=== PATIENT | male | born 1980 | race Caucasian/White ===

== ENCOUNTER 2017-05-16 12:55 | Emergency (ER) | payer MEDICARE ==
[2017-05-16] MEDS ORDERED: ONDANSETRON ODT 4 MG TAB PO STA (13:53)
[2017-05-16] MEDS ORDERED: HYDROmorphone 1 MG/ML 1 ML SYRINGE IM STA (13:53)
--- NOTE | 2017-05-16 13:59 | ED ---
General Adult HPI - General Chief complaint: Urogenital Stated complaint: groin pain Time Seen by Provider: 05/16/17 13:47 Source: patient, family, RN notes reviewed Mode of arrival: ambulatory Limitations: no limitations - History of Present Illness Initial comments: If complaint and history of present illness a 36-year-old male here with complaint of left testicular area pain and progressively worse over the past week. He was scheduled to see a general surgeon later on this afternoon but the pain was too intense at this time. Patient reports he had a urine test done at his doctor's office with did show some red blood cells he does have a history of kidney stones in the past. Describes the discomfort as left lower quadrant radiating to the left testicular area. Possibility of a hernia is being investigated. - Related Data Home Medications Medication Instructions Recorded Confirmed Acetaminophen Tab [Tylenol Tab] 1,000 mg PO Q6HR PRN 05/16/17 05/16/17 Ascorbic Acid [Vitamin C] 500 mg PO DAILY 05/16/17 05/16/17 Cholecalciferol [Vitamin D3] 1,000 unit PO DAILY 05/16/17 05/16/17 Ibuprofen [Motrin] 200 - 400 mg PO Q6HR PRN 05/16/17 05/16/17 Multivitamins, Thera [Multivitamin 1 tab PO DAILY 05/16/17 05/16/17 (formulary)] [place]-3 Fatty Acids [[place]-3] 1,000 mg PO DAILY 05/16/17 05/16/17 Zinc 50 mg PO DAILY 05/16/17 05/16/17 Previous Rx's Medication Instructions Recorded Hydrocodone/Acetaminophen [[place] 1 each PO Q6HR PRN #20 tab 05/16/17 5-325] Ondansetron Odt [Zofran Odt] 4 mg PO Q8HR PRN #10 tab 05/16/17 Tamsulosin [Flomax] 0.4 mg PO DAILY #14 cap 05/16/17 Allergies Allergy/AdvReac Type Severity Reaction Status Date / Time bupropion [From Wellbutrin] Allergy Dyspnea Verified 05/16/17 13:26 duloxetine [From Cymbalta] Allergy Dyspnea Verified 05/16/17 13:26 sertraline [From Zoloft] Allergy Dyspnea Verified 05/16/17 13:26 venom-honey bee Allergy Anaphylaxis Verified 05/16/17 13:27 Review of Systems ROS Statement: Those systems with pertinent positive or pertinent negative responses have been documented in the HPI. You have systems; no other complaints other than discomfort to the left testicular area. Past medical problems significant for 2 back surgeries. He had 2 episodes of kidney stones years ago. He's also had tonsils and adenoids removed. Family history grandfather had bladder cancer. Patient nonsmoker drinks alcohol socially. His ALLERGIES include bupropion, duloxetine, sertraline, and venom of a honey bee. ROS Other: All systems not noted in ROS Statement are negative. Past Medical History Additional Past Medical History / Comment(s): kidney stones History of Any Multi-Drug Resistant Organisms: None Reported Past Surgical History: Back Surgery, Tonsillectomy Past Psychological History: No Psychological Hx Reported Smoking Status: Never smoker Past Alcohol Use History: Occasional Past Drug Use History: None Reported General Exam - General Exam Comments Initial Comments: Pertinent physical examination Patient presents with pain to the left testicular area getting progressively worse over 1 week. Vital signs shows a temperature of 98.1 pulse 94 respiratory rate 20 pulse ox 99% room air blood pressure 133/91 No fever no chills. No complaints of nausea or vomiting. Elevation no bulging with coughing over the left lower quadrant. Examination of the external inguinal ring was extremely uncomfortable, possibility of epididymitis is suspected on examination. Patient denying dysuria. Limitations: no limitations Course Vital Signs 05/16/17 05/16/17 13:09 15:17 Temperature 98.1 F Pulse Rate 94 79 Respiratory 20 16 Rate Blood Pressure 133/91 147/79 O2 Sat by Pulse 99 98 Oximetry Medical Decision Making - Medical Decision Making Rectal decision making; the patient is here for left testicular and left groin area pain that radiates up toward the left flank area. Ongoing and getting progressively worse for the past several days. Patient had an appointment to follow-up with general surgeon earlier today when he switched general surgeons and came here instead. he had x-ray of the abdomen reviewed by radiologist his impression is; bilateral nephrolithiasis. Postop changes. Correlate for possible left lower lobe pneumonia area and as read by Dr. Villalta The patient had an ultrasound of the scrotum. It was reviewed by the radiologist and his impression is; no evidence for testicular torsion or epididymal orchitis. No hydrocele or varicocele. As read by Dr. Hernandez Urine was clean, no signs of infection or blood. The patient had a CT of the abdomen and pelvis without IV or oral contrast. The radiologist significant findings include lung bases no significant abnormality is appreciated. Kidneys entire report was reviewed but significant findings include no evidence of hydronephrosis. There are multiple kidney stones within the parenchyma of this kidney and the radiologist suspects phleboliths in the pelvis but is difficult to exclude distal ureteral calculus on the left. His interpretation of the bowel is no significant abnormality is seen. No evident hernia. There is a large amount of retained fecal debris noted incidentally within the colon. There are some air-fluid levels in the small bowel, questionable areas of small bowel wall thickening. No evidence of appendicitis. His final impression is noncontrast exam with limitations as described. Bilateral nephrolithiasis postop changes described no evident hernia. Correlate to exclude enteritis. Follow-up is indicated. As read by Dr. Villalta We discussed hernia, epididymal orchitis which appear to be negative by ultrasound. Kidney stones which were not entirely ruled out by even the CAT scan. We did discuss also enteritis but the patient is having more constipation. The patient will be placed on analgesics, medications to increase urine output and something for nausea should it develop. If the pain were to persist he is to call his surgeon to whom he was reviewed to Dr. Dodd or on-call urology Dr. Wells - Lab Data Lab Results 05/16/17 Range/Units 15:25 Urine Color Yellow Urine Appearance Clear (Clear) Urine pH 7.0 (5.0-8.0) Ur Specific [place] 1.009 (1.001-1.035) Urine Protein Negative (Negative) Urine Glucose (UA) Negative (Negative) Urine Ketones Negative (Negative) Urine Blood Negative (Negative) Urine Nitrite Negative (Negative) Urine Bilirubin Negative (Negative) Urine Urobilinogen <2.0 (<2.0) mg/dL Ur Leukocyte Esterase Negative (Negative) Disposition Clinical Impression: Ureterolithiasis Disposition: HOME SELF-CARE Condition: Fair Instructions: Kidney Stones (ED), Testicle Pain (ED) Additional Instructions: Increase fluids, use Zofran as needed for nausea, take Flomax increased urine flow, [place] for pain if ibuprofen isn't strong enough. Strain the urine. If pain persists follow up with Dr. Velasco or urologist Dr. Wells. Prescriptions: Hydrocodone/Acetaminophen [[place] 5-325] 1 each PO Q6HR PRN #20 tab PRN Reason: Pain Ondansetron Odt [Zofran Odt] 4 mg PO Q8HR PRN #10 tab PRN Reason: Nausea vomiting Tamsulosin [Flomax] 0.4 mg PO DAILY #14 cap Referrals: None,Stated [Primary Care Provider] - 1-2 days Steve Wells MD [STAFF PHYSICIAN] - 1-2 days Time of Disposition: 16:50
--- NOTE | 2017-05-16 15:07 | XR ---
2 view abdomen HISTORY: Left flank pain, history of stones 2 views of the abdomen submitted on 3 images, no comparisons There are multiple calcifications scattered over the bilateral kidneys. Largest calcification on the left measures approximately 1 cm x 4 mm, there may be an additional calcification measuring 2 mm in d iameter immediately lateral, possible lower lobe and upper lobe 2 mm calcifications. The largest calc ification on the right measures 1 cm x 5 mm. There may be an immediately adjacent calcification measu ring 2 mm. Overlying bowel gas may obscure detail. Difficult to exclude retrocardiac density, correla te for left lower lobe pneumonia. No evident pneumoperitoneum or bowel obstruction. Postop changes ar e present status post posterior lumbar fusion, lumbosacral fusion. IMPRESSION: Bilateral nephrolithiasis. Postop changes. Correlate for possible left lower lobe pneumon ia.
[2017-05-16] MEDS ORDERED: KETOROLAC 30 MG/ML 1 ML VIAL IM STA (15:08)
--- NOTE | 2017-05-16 15:10 | US ---
EXAMINATION TYPE: US scrotum with doppler. TECHNIQUE: Grayscale and color Doppler Duplex imaging performed of the scrotum. DATE OF EXAM: 05/16/2017 COMPARISON: NONE CLINICAL HISTORY: 36-year-old male with left testicular, left inguinal pain. FINDINGS: EXAM MEASUREMENTS: TESTICLES: Right Testicle: 5.2 x 2.7 x 3.9 cm Left Testicle: 5.0 x 2.7 x 3.9 cm There is normal homogeneous echotexture on both sides. No hyperemia. No mass. A couple punctate calci fications are present on the right and one on the left. These are incidental and do not meet criteria for microlithiasis. Satisfactory arterial and venous flow on both sides. EPIDIDYMIS HEAD: Right Epididymis: 0.7 cm Left Epididymis: 0.9 cm Presence of hydroceles: no Presence of varicoceles: no IMPRESSION: 1. No evidence for testicular torsion or epididymoorchitis. 2. No hydrocele or varicocele.
[2017-05-16 15:32] LABS: Appearance,Urine Clear (Clear); Bilirubin,Urine Negative (Negative); Glucose,Urine (UA) Negative (Negative); Ketones,Urine Negative (Negative); Leukocyte Esterase,Urine Negative (Negative); Nitrite,Urine Negative (Negative); Protein,Urine Negative (Negative); Specific Gravity,Urine 1.009 (1.001-1.035); UA Billing (MACRO vs. MICRO) CHEM; Urobilinogen,Urine <2.0 mg/dL (<2.0)
--- NOTE | 2017-05-16 16:18 | XR ---
EXAMINATION TYPE: XR chest 2V DATE OF EXAM: 05/16/2017 COMPARISON: NONE INDICATION: Left lower lobe pneumonia. TECHNIQUE: Frontal and lateral views of the chest are obtained. FINDINGS: The heart size is normal. The pulmonary vasculature is normal. The lungs are clear. Left lower lung field is clear. IMPRESSION: 1. No acute pulmonary process.
--- NOTE | 2017-05-16 16:25 | CT ---
EXAMINATION TYPE: CT abdomen pelvis wo con DATE OF EXAM: 05/16/2017 COMPARISON: Plain film same date HISTORY: Left side flank and groin pain x3 days. CT DLP: 345.1 mGycm Automated exposure control for dose reduction was used. TECHNIQUE: Helical acquisition of images from the lung bases through the pelvis. FINDINGS: Lack of contrast could compromise sensitivity. LUNG BASES: No significant abnormality is appreciated. AORTA: No significant abnormality is appreciated. LIVER/GB: No significant abnormality is appreciated. PANCREAS: No significant abnormality is seen. SPLEEN: No significant abnormality is seen. ADRENALS: No significant abnormality is seen. KIDNEYS: Bilateral renal calculi are present. No evident hydronephrosis. There are extrarenal pelves present bilaterally however. Largest calculus at the lower pole of the right kidney measures approxim ately 9.5 x 6.3 mm, additional calculus measuring 3.5 mm at the lower pole, the midpole there is a 2 mm calculus. Left kidney shows the largest calculus at the mid pole measuring accidentally 6 mm x 12 in greatest dimension. Punctate calcifications present in the lower pole, Toprol approximately 5 calc ifications. Suspect phleboliths in the pelvis, difficult to to exclude a distal ureteral calculus on the left. REPRODUCTIVE ORGANS: No significant abnormality is seen. URINARY BLADDER: No significant abnormality is seen. BOWEL: No significant abnormality is seen. No evident hernia. Large amount of retained fecal debris noted incidentally within the colon. There are some air-fluid levels within the small bowel, question able areas of small bowel wall thickening. No evident appendicitis. FREE AIR: No Free Air is visible. ASCITES: None visible. PELVIC ADENOPATHY: None visualized. RETROPERITONEAL ADENOPATHY: No Retroperitoneal Adenopathy visible. OSSEOUS STRUCTURES: Lumbar fusion changes are present posteriorly L4-5 with intervertebral spacing m aterial, there is been fusion at L5-S1 with minimal grade 1 anterolisthesis, bilateral spondylolysis present at L5. Longitudinal ossific density present from the inferior aspect of the fusion indu at S1 level extends anterior to the sacrum towards the caudal aspect. Facet arthropathy change present L5-S 1, L4-5 IMPRESSION: NONCONTRAST EXAM WITH LIMITATIONS DESCRIBED. BILATERAL NEPHROLITHIASIS. POSTOP CHANGES DESCRIBE D. NO EVIDENT HERNIA. CORRELATE TO EXCLUDE ENTERITIS. FOLLOW-UP INDICATED
[2017-05-16 17:07] VITALS: BP 123/69; PULSE 59; RESP 17; TEMP 97.1
[2017-05-16] MEDS ORDERED: CIPROFLOXACIN HCL 500 MG TAB PO STA (17:59)
== END 2017-05-16 18:11 | disposition home or self-care (01) ==
LOC: EC 12:55
DX: N20.1 Calculus of ureter (principal); N50.812 Left testicular pain; Z79.899 Other long term (current) drug therapy; Z91.030 Bee allergy status; Z88.8 Allergy status to other drugs, medicaments and biological substances
CPT/HCPCS: 81003; 87086; 71020; 74020; 93975; 76870; 74176; 99284; 96372 ×2; J1885; J1170

== ENCOUNTER → 2019-04-25 | Outpatient (CLI) | payer MEDICARE ==
--- NOTE | 2019-04-25 12:51 | MR ---
EXAMINATION TYPE: MR shoulder LT wo con DATE OF EXAM: 04/25/2019 COMPARISON: None HISTORY: Lt shoulder pain, injury 10 yrs ago TECHNIQUE: Multiplanar, multisequence imaging of the left shoulder is performed without contrast. FINDINGS: Bicipital tendon is well situated the bicipital groove. Bony labrum are intact by nonarthrogram technique there is a small amount of fluid within inferior ax illary recess. Inferior glenohumeral ligament intact. There is mild hypertrophic change of the AC joint resulting in mild mass effect upon the supraspinatu s tendon and muscle. There is very minimal fraying along the bursal surface of the supraspinatus and infraspinatus tendon insertions with no through thickness tear or retraction. The biceps anchor and intracapsular portion of the biceps tendon have a normal appearance. Subscapularis tendon demonstrates a localized area of increased signal near its insertion with no sarina dence of through thickness tear or retraction.. IMPRESSION: 1. Findings suggestive of tendinosis of the supraspinatus, infraspinatus and subscapularis tendons wi th no evidence of through thickness tear or retraction. Very minimal bursal fraying along the inserti ons of the supraspinatus and infraspinatus tendons. 2. Trace amount of fluid in the inferior axillary recess. 3. No diagnostic evidence of labral tear. 4. Localized area of intrasubstance tendinosis near the insertion of the subscapularis tendon.
== END | disposition home or self-care (01) ==
LOC: RADMRIMAIN 08:59
PROVIDERS: ATTEND Physician Assistant
DX: M75.82 Other shoulder lesions, left shoulder (principal)